=== PATIENT | male | born 1975 | race African-American/Black ===

== ENCOUNTER 2021-05-10 10:47 | Emergency (ER) | payer SELFPAY ==
[2021-05-10] MEDS ORDERED: ONDANSETRON 4 MG (ODT) TAB ONE (12:58)
[2021-05-10] MEDS ORDERED: LORAZEPAM 1 MG TABLET ONE (13:02)
[2021-05-10] MEDS ORDERED: ONDANSETRON 4 MG/2 ML VIAL ONE (14:30)
[2021-05-10] MEDS ORDERED: LORazepam 2 MG/ML VIAL ONE (14:30)
[2021-05-10 14:56] LABS: Absolute Lymphocytes (CBC) 3.1 K/uL (0.7-4.9); Hematocrit 33.5 % (39.6-49.0); Lymphocytes % 73.1 % (15.3-44.8); MPV 9.7 fL (7.6-11.3)
[2021-05-10] MEDS ORDERED: FOLIC ACID 1 MG, THIAMINE HCL 100 MG, MULTIVITAMINS INJ 10 ML in NA CHLORIDE 0.9% 1,000 ML IV ONE (15:00)
[2021-05-10 15:03] LABS: Protime INR 0.99
[2021-05-10 15:17] LABS: ALT/SGPT 123 U/L (12-78); AST/SGOT 278 U/L (15-37); Albumin 3.7 g/dL (3.4-5.0); Alkaline Phosphatase 175 U/L (45-117); BUN Blood Urea Nitrogen 7 mg/dL (7-18); Bicarbonate 28 mmol/L (21-32); Bilirubin Direct 0.6 mg/dL (0-0.2); Bilirubin Total 1.2 mg/dL (0.2-1.0); Glucose Level 146 mg/dL (74-106); Potassium 3.4 mmol/L (3.5-5.1); Protein, Total 8.4 g/dL (6.4-8.2); Sodium Level 138 mmol/L (136-145)
[2021-05-10 15:19] LABS: Urine Blood 1+ (Negative); Urine Glucose Negative (Negative); Urine Protein 3+ (Negative); Urine Specific Gravity 1.025 (1.005-1.030); Urine pH 7.5 (5.0-7.0)
[2021-05-10 15:57] LABS: Barbiturates NEGATIVE (NEGATIVE); Benzodiazepines NEGATIVE (NEGATIVE); Cocaine NEGATIVE (NEGATIVE); METHAMPHETAM NEGATIVE (NEGATIVE); Methadone NEGATIVE (NEGATIVE); Opiates NEGATIVE (NEGATIVE); Phencyclidine NEGATIVE (NEGATIVE); THC Cannibis NEGATIVE (NEGATIVE)
--- NOTE | 2021-05-10 16:57 | EDPHYS ---
Physician Documentation [facility] Name: Grant Rothman Age: 45 yrs Sex: Male : 1975 Arrival Date: 05/10/2021 Time: 10:52 Bed 19 Private MD: ED Physician Eugenio Cobian HPI: 05/10 13:09 This 45 yrs old Male presents to ER via Ambulatory with complaints of DETOXING, High pm1 Blood Pressure. 13:09 Patient presenting to the ER with complaints of hypertension and detoxing from alcohol. pm1 Patient has been drinking alcohol for 10 years and wanted to stop drinking today. Last alcohol yesterday. Went to detox facility and refused admission due to elevated blood pressure. His systolic was 170. Patient has a known history of hypertension that he is treating with losartan. Onset: The symptoms/episode began/occurred today. Severity of symptoms: in the emergency department the symptoms are worse Pain is currently a 0 / 10. The patient has not experienced similar symptoms in the past. The patient has not recently seen a physician. Historical: - Allergies: 11:31 No Known Allergies; vg1 - Home Meds: 11:31 losartan oral [Active]; vg1 - PMHx: 11:31 Hypertensive disorder; Diverticulitis; vg1 - PSHx: 11:31 None; vg1 - Immunization history:: Client reports receiving the 2nd dose of the Covid vaccine. - Social history:: Smoking status: Patient reports the use of cigarette tobacco products, smokes one pack cigarettes per day. ROS: 13:09 Constitutional: Negative for fever, chills, and weight loss, Cardiovascular: Negative pm1 for chest pain, palpitations, and edema, Respiratory: Negative for shortness of breath, cough, wheezing, and pleuritic chest pain. 13:09 Back: Negative for injury and pain, MS/Extremity: Negative for injury and deformity, Skin: Negative for injury, rash, and discoloration. 13:09 Abdomen/GI: Positive for nausea and vomiting, Negative for abdominal pain, diarrhea, constipation. 13:09 Neuro: Positive for dizziness, Negative for numbness, tingling, weakness. 13:09 All other systems are negative. Exam: 13:09 Constitutional: This is a well developed, well nourished patient who is awake, alert, pm1 and in no acute distress. Head/Face: Normocephalic, atraumatic. 13:09 Skin: Warm, dry with normal turgor. Normal color with no rashes, no lesions, and no evidence of cellulitis. MS/ Extremity: Pulses equal, no cyanosis. Neurovascular intact. Full, normal range of motion. 13:09 Cardiovascular: Exam negative for acute changes, Rate: normal, Rhythm: regular, Pulses: no pulse deficits are appreciated, Heart sounds: normal, normal S1and S2. 13:09 Respiratory: Exam negative for acute changes, respiratory distress, shortness of breath, Breath sounds: are clear throughout. 13:09 Abdomen/GI: Inspection: abdomen appears normal, Palpation: abdomen is soft and non-tender, in all quadrants. 13:09 Neuro: Exam negative for acute changes, Orientation: is normal, Mentation: is normal, Motor: is normal, moves all fours, Sensation: is normal, no obvious gross deficits. 13:28 Eyes: Exam is negative for acute changes, Periorbital structures: appear normal, pm1 Extraocular movements: intact throughout. 13:28 ENT: Exam is negative for acute changes, Mouth: Lips: normal, moist, Oral mucosa: normal, pink and intact, moist. Vital Signs: 11:29 BP 160 / 98; Pulse 90; Resp 24; Temp 97.8; Pulse Ox 100% ; Weight 74.84 kg; Height 5 vg1 ft. 8 in. (172.72 cm); Pain 8/10; 15:59 BP 157 / 107; Pulse 97; Resp 24; Pulse Ox 99% ; bp 17:00 BP 140 / 96; Pulse 98; Resp 25; Pulse Ox 99% ; bp 11:29 Body Mass Index 25.09 (74.84 kg, 172.72 cm) vg1 MDM: 13:05 Data reviewed: vital signs. Data interpreted: Pulse oximetry: on room air is 100 %. pm1 Interpretation: normal. 14:01 Patient medically screened. pm1 14:01 Patient medically screened. [facility] 16:06 Counseling: I had a detailed discussion with the patient and/or guardian regarding: the pm1 historical points, exam findings, and any diagnostic results supporting the discharge/admit diagnosis, lab results, radiology results, the need for outpatient follow up, a family practitioner, Alcohol detoxification center, to return to the emergency department if symptoms worsen or persist or if there are any questions or concerns that arise at home. 05/10 14:02 Order name: Acetaminophen; Complete Time: 15:20 pm1 05/10 14:02 Order name: Basic Metabolic Panel; Complete Time: 15:20 pm1 05/10 14:02 Order name: CBC with Diff pm05/10 14:02 Order name: ETOH Level; Complete Time: 15:20 pm1 05/10 14:02 Order name: Hepatic Function; Complete Time: 15:20 pm1 05/10 14:02 Order name: PT-INR; Complete Time: 15:07 pm1 05/10 14:02 Order name: Ptt, Activated; Complete Time: 15:07 pm1 05/10 14:02 Order name: Salicylate; Complete Time: 15:38 pm1 05/10 14:02 Order name: Urine Drug Screen; Complete Time: 16:05 pm1 05/10 15:18 Order name: Urine Dipstick-Ancillary; Complete Time: 15:20 EDMS 05/10 14:02 Order name: EKG; Complete Time: 14:03 pm1 05/10 14:02 Order name: EKG - Nurse/Tech; Complete Time: 15:23 pm1 05/10 14:02 Order name: IV Saline Lock; Complete Time: 15:00 pm1 05/10 14:02 Order name: Labs collected and sent; Complete Time: 15:00 pm1 05/10 14:02 Order name: Suicide Screening ([place]); Complete Time: 15:24 pm1 05/10 14:02 Order name: Urine Dipstick-Ancillary (obtain specimen); Complete Time: 15:23 pm1 Administered Medications: 13:07 Drug: Zofran (Ondansetron) 4 mg Route: PO; vg1 17:12 Follow up: Response: No adverse reaction bp 13:07 Drug: Ativan (LORazepam) 2 mg Route: PO; vg1 17:12 Follow up: Response: No adverse reaction bp 15:00 Drug: Banana Bag - (NS 0.9% 1000 ml, foLIC Acid 1 mg, Thiamine 100 mg, Multivitamin 1 bp amp) Route: IV; Rate: calculated rate; Site: right forearm; 17:11 Follow up: IV Status: Completed infusion; IV Intake: 1000ml bp 15:00 Drug: Ativan (LORazepam) 1 mg Route: IVP; Site: right forearm; bp 17:11 Follow up: Response: No adverse reaction bp 15:00 Drug: Zofran (Ondansetron) 4 mg Route: IVP; Site: right forearm; bp 17:11 Follow up: Response: No adverse reaction bp Disposition: 05/11 07:37 Co-signature as Attending Physician, Eugenio Cobian MD I agree with the assessment and karina plan of care. Disposition Summary: 05/10/21 16:56 Discharge Ordered Location: Home pm1 Problem: new pm1 Symptoms: have improved pm1 Condition: Stable pm1 Diagnosis - Alcohol abuse pm1 - Essential (primary) hypertension pm1 Followup: pm1 - With: Emergency Department - When: As needed - Reason: Worsening of condition Followup: pm1 - With: Private Physician - When: 2 - 3 days - Reason: Recheck today's complaints, Continuance of care, Re-evaluation by your physician Discharge Instructions: - Discharge Summary Sheet pm1 - Hypertension, Adult pm1 - Alcohol Abuse and Nutrition pm1 - How to Take Your Blood Pressure, [id number] pm1 - DASH Eating Plan pm1 - Managing Your Hypertension pm1 - Alcohol Abuse and Dependence Information, Adult pm1 Forms: - Medication Reconciliation Form pm1 - Thank You Letter pm1 - Antibiotic Education pm1 - Prescription Opioid Use pm1 Prescriptions: - chlordiazepoxide HCl 25 mg Oral capsule - take 1 capsule by ORAL route as directed for 5 days Day 1: Librium 25 mg every pm1 6 hours scheduled. Day 2: Librium 25 mg every 8 hours scheduled. Day 3: Librium 25 mg every 12 hours scheduled. Day 4: Librium 25 mg at bedtime scheduled. Day 5: Librium 25 mg at bedtime scheduled; 11 capsule; Refills: 0, Product Selection Permitted - ondansetron 4 mg Oral tablet,disintegrating - place 1 tablet by TRANSLINGUAL route every 8 hours As needed; 15 tablet; pm1 Refills: 0, Product Selection Permitted Signatures: Dispatcher [employer] Eugenio Manning MD MD cha Marinas, Patrick, JOINT MACHINE OPERATOR JOINT MACHINE OPERATOR pm1 Rg Cross, RN RN Aishwarya Mathis, RN RN vg1
--- NOTE | 2021-05-10 16:57 | ER ---
Nurse's Notes [facility] Name: Grant Rothman Age: 45 yrs Sex: Male : 1975 Arrival Date: 05/10/2021 Time: 10:52 Bed 19 Private MD: Diagnosis: Alcohol abuse;Essential (primary) hypertension Presentation: 05/10 11:29 Chief complaint: Parent and/or Guardian states: Pt is currently detoxing and was going vg1 to go to the [facility] but would not be accepted due to BP being high. Pt states dizziness and light headed with nausea. Coronavirus screen: Vaccine status: Patient reports receiving the 2nd dose of the covid vaccine. Client denies travel out of the [place] in the last 14 days. Ebola Screen: Patient negative for fever greater than or equal to 101.5 degrees Fahrenheit, and additional compatible Ebola Virus Disease symptoms. Initial Sepsis Screen: Does the patient meet any 2 criteria? RR > 20 per min. Initial Sepsis Screen: Does the patient have a suspected source of infection? No. Patient's initial sepsis screen is negative. Risk Assessment: Do you want to hurt yourself or someone else? Patient reports no desire to harm self or others. Onset of symptoms was May 09, 2021. 11:29 Method Of Arrival: Ambulatory vg1 11:29 Acuity: ISAMAR 3 vg1 Triage Assessment: 11:31 General: Appears uncomfortable, Behavior is cooperative, anxious. Pain: Complains of vg1 pain in generalize body Pain currently is 8 out of 10 on a pain scale. Neuro: Level of Consciousness is awake, alert, obeys commands, Oriented to person, place, time, situation. Historical: - Allergies: 11:31 No Known Allergies; vg1 - Home Meds: 11:31 losartan oral [Active]; vg1 - PMHx: 11:31 Hypertensive disorder; Diverticulitis; vg1 - PSHx: 11:31 None; vg1 - Immunization history:: Client reports receiving the 2nd dose of the Covid vaccine. - Social history:: Smoking status: Patient reports the use of cigarette tobacco products, smokes one pack cigarettes per day. Screenin:00 Abuse screen: Denies threats or abuse. Denies injuries from another. Nutritional bp screening: No deficits noted. Tuberculosis screening: No symptoms or risk factors identified. Fall Risk None identified. Assessment: 14:00 General: SEE TRIAGE NOTE. bp 16:00 Reassessment: No changes from previously documented assessment. Patient and/or family bp updated on plan of care and expected duration. Pain level reassessed. 16:30 Reassessment: Patient and/or family updated on plan of care and expected duration. Pain bp level reassessed. Neuro: Level of Consciousness is awake, alert, obeys commands, Oriented to Appropriate for age Gait is steady. 17:09 Reassessment: PT D/C HOME AMBULATORY WITH FAMILY, DX WITH ETOH ABUSE AND HTN. bp Vital Signs: 11:29 BP 160 / 98; Pulse 90; Resp 24; Temp 97.8; Pulse Ox 100% ; Weight 74.84 kg; Height 5 vg1 ft. 8 in. (172.72 cm); Pain 8/10; 15:59 BP 157 / 107; Pulse 97; Resp 24; Pulse Ox 99% ; bp 17:00 BP 140 / 96; Pulse 98; Resp 25; Pulse Ox 99% ; bp 11:29 Body Mass Index 25.09 (74.84 kg, 172.72 cm) vg1 ED Course: 10:52 Patient arrived in ED. ja2 11:31 Triage completed. vg1 11:31 Arm band placed on Patient placed. vg1 13:05 Lee Rodriguez NP is PHCP. pm1 13:05 Eugenio Cobian MD is Attending Physician. pm1 14:00 Patient placed in an exam room, on a stretcher. ll1 14:15 Rg Cross, RN is Primary Nurse. bp 15:00 Patient has correct armband on for positive identification. Bed in low position. Call bp light in reach. Side rails up X2. Adult w/ patient. 15:00 Inserted saline lock: 20 gauge in right forearm, using aseptic technique. Blood bp collected. 15:23 EKG done, by ED staff, reviewed by Lee Rodriguez NP. 3 17:10 No provider procedures requiring assistance completed. IV discontinued, intact, bp bleeding controlled, No redness/swelling at site. Pressure dressing applied. Administered Medications: 13:07 Drug: Zofran (Ondansetron) 4 mg Route: PO; vg1 17:12 Follow up: Response: No adverse reaction bp 13:07 Drug: Ativan (LORazepam) 2 mg Route: PO; vg1 17:12 Follow up: Response: No adverse reaction bp 15:00 Drug: Banana Bag - (NS 0.9% 1000 ml, foLIC Acid 1 mg, Thiamine 100 mg, Multivitamin 1 bp amp) Route: IV; Rate: calculated rate; Site: right forearm; 17:11 Follow up: IV Status: Completed infusion; IV Intake: 1000ml bp 15:00 Drug: Ativan (LORazepam) 1 mg Route: IVP; Site: right forearm; bp 17:11 Follow up: Response: No adverse reaction bp 15:00 Drug: Zofran (Ondansetron) 4 mg Route: IVP; Site: right forearm; bp 17:11 Follow up: Response: No adverse reaction bp Intake: 17:11 IV: 1000ml; Total: 1000ml. bp Outcome: 16:56 Discharge ordered by MD. pm1 17:10 Discharged to home ambulatory, with family. bp 17:10 Condition: stable 17:10 Discharge instructions given to patient, family, Instructed on discharge instructions, follow up and referral plans. medication usage, Demonstrated understanding of instructions, follow-up care, medications, Prescriptions given X 2. 17:12 Patient left the ED. bp Signatures: Lee Rodriguez, MOLDING UTILITY WORKER MOLDING UTILITY WORKER pm1 Mindy Hand 3 Rg Cross RN RN Aishwarya Mathis RN RN vg1 Ketan Sarabia RN RN ll1 Celestina Roy
[2021-05-10 17:19] VITALS: TEMP 97.8
[2021-05-10 17:21] VITALS: O2SAT 99
[2021-05-10 17:23] VITALS: BP 140/96
[2021-05-10 20:43] LABS: Blood Morphology Comment NOTED (NOT SEEN); Hypochromasia 1+; Platelet Estimate ADEQ
--- NOTE | 2021-05-12 07:29 | EKG ---
Test Date: 2021-05-10 Test Time: 15:10:34 Laminator Preforms: RHONDA MEASUREMENT RESULTS: Intervals: Rate: 103 SC: 176 QRSD: 114 QT: 398 QTc: 521 Clyde: P: 68 SC: 176 QRS: -26 T: 48 INTERPRETIVE STATEMENTS: Sinus tachycardia Possible Left atrial enlargement Right bundle branch block Abnormal ECG No previous ECG available for comparison Electronically Signed On 05-12-21 07:26:23 TOOL DESIGN ENGINEER by Joel Avelar
== END 2021-05-10 17:12 | disposition home or self-care (01) ==
LOC: ER 10:47
DX: I10 Essential (primary) hypertension (principal); F17.210 Nicotine dependence, cigarettes, uncomplicated
CPT/HCPCS: 36415; 80048; 80076; 80307; 80320; 80329; 81003; 85025; 85610; 85730; 93005; 96365; 96366; 96375; 99284; J2405; J3411; J7030